=== PATIENT | male | born 1980 ===

== ENCOUNTER 2019-02-28 19:33 | Outpatient (CLI) | payer OTHER | END 2019-02-28 19:48 | disposition home or self-care (01) | LOC: RAD 19:33 | DX: S42.321A Displaced transverse fracture of shaft of humerus, right arm, initial encounter for closed fracture (principal) ==

== ENCOUNTER 2019-03-07 06:00 | Day surgery (SDC) | payer OTHER | END 2019-03-07 14:38 | disposition home or self-care (01) | LOC: CIR.AMB 06:00 | DX: S42.321A Displaced transverse fracture of shaft of humerus, right arm, initial encounter for closed fracture (principal); M75.121 Complete rotator cuff tear or rupture of right shoulder, not specified as traumatic ==

== ENCOUNTER 2019-05-03 18:19 | Outpatient (CLI) | payer OTHER | END 2019-05-03 20:19 | disposition home or self-care (01) | LOC: RAD 18:19 | DX: M25.531 Pain in right wrist (principal) ==

== ENCOUNTER 2019-06-09 14:13 | Outpatient (CLI) | payer OTHER | END 2019-06-09 14:16 | disposition home or self-care (01) | LOC: RAD 14:13 | DX: S42.321D Displaced transverse fracture of shaft of humerus, right arm, subsequent encounter for fracture with routine healing (principal) ==

== ENCOUNTER 2019-10-21 15:33 | Outpatient (CLI) | payer OTHER | END 2019-10-21 16:11 | disposition home or self-care (01) | LOC: RAD 15:33 | DX: S42.321D Displaced transverse fracture of shaft of humerus, right arm, subsequent encounter for fracture with routine healing (principal); S52.571D Other intraarticular fracture of lower end of right radius, subsequent encounter for closed fracture with routine healing; S62.354D Nondisplaced fracture of shaft of fourth metacarpal bone, right hand, subsequent encounter for fracture with routine healing ==

== ENCOUNTER 2019-11-07 14:39 | Outpatient (CLI) | payer OTHER | END 2019-11-07 15:17 | disposition home or self-care (01) | LOC: NUCLEAR 14:39 | DX: M81.0 Age-related osteoporosis without current pathological fracture (principal) ==

== ENCOUNTER → 2022-12-29 09:49 | Outpatient (CLI) | payer OTHER | END | disposition home or self-care (01) | LOC: LAB 09:49 | DX: I10 Essential (primary) hypertension (principal); D64.9 Anemia, unspecified; E78.49 Other hyperlipidemia; N39.0 Urinary tract infection, site not specified; E11.8 Type 2 diabetes mellitus with unspecified complications; E03.9 Hypothyroidism, unspecified; E53.8 Deficiency of other specified B group vitamins; E55.9 Vitamin D deficiency, unspecified ==

== ENCOUNTER → 2022-12-29 | Outpatient (CLI) | payer OTHER | END | disposition home or self-care (01) | LOC: RAD 10:22 | DX: M54.2 Cervicalgia (principal); M54.59 Other low back pain; M54.6 Pain in thoracic spine ==